=== PATIENT | female | born 1980 | race American Indian/Alaskan Native ===

== ENCOUNTER 2018-02-13 12:48 | Outpatient (CLI) | payer OTHER ==
--- NOTE | 2018-02-13 14:23 | Ultrasound Report ---
BILATERAL DIGITAL DIAGNOSTIC MAMMOGRAM with CAD and LEFT BREAST ULTRASOUND: 02/13/18 13:00:00 CLINICAL: 37 year-old with left breast pain and nipple discharge for three weeks. COMPARISON:None. These are baseline studies. FINDINGS: The breasts are heterogeneously dense, which may obscure small masses. Moderate left periareolar skin thickening and left retroareolar asymmetric density without a distinct mass.. No mass, architectural distortion or suspicious calcifications. Ultrasound of the left breast (including all four quadrants and the retroareolar area) was performed and demonstrated an irregular retroareolar fluid collection with internal echoes. The collection is contiguous to the skin and measures 3.1 x 3.0 x 1.6 cm. No mass, cyst or shadowing. IMPRESSION: A 3 cm left retroareolar breast abscess. Recommend consultation with a breast surgeon for needle aspiration and treatment. BI-RADS CATEGORY: 4 -- Mildly Suspicious COMMENT: Patient follow-up letters are generated by our [employer] application.
== END 2018-02-13 12:49 | disposition home or self-care (01) ==
LOC: SPVWC 12:48
PROVIDERS: ATTEND Obstetrics & Gynecology
DX: N61.1 Abscess of the breast and nipple (principal)
CPT/HCPCS: 77066